=== PATIENT | male | born 1985 | race African-American/Black ===

== ENCOUNTER 2021-08-12 06:38 | Outpatient (CLI) | payer OTHER ==
--- NOTE | 2021-08-12 09:14 | MRI Report ---
PROCEDURE: Lumbar Spine W/O INDICATIONS: SCIATICA, LOW BACK PAIN TECHNIQUE: Noncontrast sagittal T1 spin echo and T2 fast echo, sagittal STIR, axial T1 and T2 fast spin echo thr ough the lumbar spine. In cases with scoliosis, additional coronal T2 fast spin echo may be performe d. COMPARISON: None. FINDINGS: Image quality: Excellent. Alignment and Curvature: There is normal bony alignment. Bone Marrow: Marrow is of normal overall signal. No acute vertebral body compression fractures. Spinal Cord: Conus medullaris terminates at the L1 level. Visualized cord demonstrates normal signa l and size. Paraspinous Soft Tissues: No paravertebral masses. T12-L1: No canal stenosis or foraminal stenosis. L1-L2: Mild facet hypertrophy. No canal stenosis or foraminal stenosis. L2-L3: Facet hypertrophy. No canal stenosis. Mild bilateral foraminal stenosis. L3-L4: Facet hypertrophy. Minimal disc bulge. No canal stenosis. Moderate bilateral foraminal steno sis with mild flattening deformity on the exiting bilateral L3 nerve roots. L4-L5: Minimal disc bulge. Facet hypertrophy. Borderline canal stenosis. Mild to moderate bilateral foraminal stenosis. L5-S1: Annulus tear plus mild left posterior disc extrusion impinging on the left S1 nerve root in the left lateral recess. Facet hypertrophy. No central canal stenosis. Mild to moderate right foramin al narrowing. Moderate to severe left foraminal narrowing with a degree of left foraminal L5 nerve ro ot impingement. IMPRESSION: 1. There is underlying multilevel facet arthropathy. 2. Findings are most significant at L5-S1. There is a mild left posterior disc extrusion impinging on the left S1 nerve root in the left lateral recess. There is also moderate to severe left foraminal n arrowing with a degree of left foraminal L5 nerve root impingement. Reviewed by: Troy Marie MD on 08/12/2021 9:13 AM PDT Approved by: Troy Marie MD on 08/12/2021 9:13 AM PDT Station ID: [id number]
== END 2021-08-12 06:39 | disposition home or self-care (01) ==
LOC: DI 06:38
DX: M47.816 Spondylosis without myelopathy or radiculopathy, lumbar region (principal); M51.27 Other intervertebral disc displacement, lumbosacral region; M48.07 Spinal stenosis, lumbosacral region; M51.37 Other intervertebral disc degeneration, lumbosacral region

== ENCOUNTER 2022-01-22 08:00 | Outpatient (CLI) | payer OTHER | END 2022-01-22 23:59 | disposition home or self-care (01) | LOC: LAB.N 08:00 | PROVIDERS: ATTEND Physician Assistant | DX: R21 Rash and other nonspecific skin eruption (principal) | CPT/HCPCS: 87252 ==